=== PATIENT | female | born 1995 | race Caucasian/White ===

== ENCOUNTER 2018-08-04 07:02 | Emergency (ER) | payer OTHER ==
[2018-08-04] MEDS ORDERED: Acetaminophen TAB* 325 MG PO ONE (07:15)
[2018-08-04] MEDS ORDERED: Ibuprofen TAB* 800 MG PO ONE (07:15)
--- NOTE | 2018-08-04 07:21 | ED ---
HPI Febrile Illness - HPI Summary HPI Summary: 22 year old female presents with fever for the past 3 days. She states that she has been taking tyenlol for her fever but her temperature keeps coming back up. She denies any cough. She admits to sinus congestion. She admits to occasionally headache but no headache now. she was vomiting but that has resolved. She has not taken anything for her fever today. no abdominal pain or diarrhea. no neck stiffness. she admits to occasionally sore throat. no medical conditions. - History of Current Complaint Chief Complaint: EDFluSymptoms Time Seen by Provider: 08/04/18 07:04 Pain Intensity: 0 - Allergy/Home Medications Allergies/Adverse Reactions: Allergies Allergy/AdvReac Type Severity Reaction Status Date / Time No Known Allergies Allergy Verified 08/04/18 07:09 PMH/Surg Hx/FS Hx/Imm Hx Endocrine/Hematology History: Denies: Hx Anticoagulant Therapy Respiratory History: Denies: Hx Asthma Infectious Disease History: No Infectious Disease History: Denies: Traveled Outside the [place] in Last 30 Days - Family History Known Family History: Negative: Respiratory Disease - Social History Substance Use Type: Reports: None Smoking Status (MU): Never Smoked Tobacco Review of Systems Positive: Fever Positive: Sore Throat, Nasal Discharge Negative: Chest Pain Negative: Shortness Of Breath, Cough Positive: Vomiting. Negative: Abdominal Pain, Diarrhea, Nausea All Other Systems Reviewed And Are Negative: Yes Physical Exam Triage Information Reviewed: Yes Vital Signs On Initial Exam: Initial Vitals Temp Pulse Resp BP Pulse Ox 102.3 F 116 18 135/76 96 08/04/18 07:04 08/04/18 07:04 08/04/18 07:04 08/04/18 07:04 08/04/18 07:04 Vital Signs Reviewed: Yes Appearance: Positive: Well-Appearing Skin: Positive: Warm, Dry Head/Face: Positive: Normal Head/Face Inspection Eyes: Positive: Normal, EOMI, JAIMIE, Conjunctiva Clear ENT: Positive: Normal ENT inspection, Pharynx normal, TMs normal Neck: Positive: Supple, Nontender, No Lymphadenopathy. Negative: Nuchal Rigidity Respiratory/Lung Sounds: Positive: Clear to Auscultation, Breath Sounds Present Cardiovascular: Positive: Normal, RRR Abdomen Description: Positive: Nontender, Soft Bowel Sounds: Positive: Present Musculoskeletal: Positive: Normal Neurological: Positive: Normal Psychiatric: Positive: Normal Diagnostics - Vital Signs Vital Signs Temp Pulse Resp BP Pulse Ox 08/04/18 07:04 102.3 F 116 18 135/76 96 - Laboratory Lab Statement: Any lab studies that have been ordered have been reviewed, and results considered in the medical decision making process. - Radiology chest Radiology Interpretation Completed By: Radiologist Summary of Radiographic Findings: IMPRESSION: SMALL RIGHT BASILAR INFILTRATE. Re-Evaluation - Re-Evaluation First Eval Re-Evaluation Time: 08:09 Change: Improved Comment: able to tolerated gingerale Second Eval Re-Evaluation Time: 09:09 Change: Improved Comment: feels sweaty but is feeling better. continues to drink water and gingerale Third Eval Re-Evaluation Time: 09:25 Change: Improved Comment: fever is now 100, wants to be discharge Course/Dx - Course Course Of Treatment: 22 year old female presents with fever for the past 3 days. She has been taking tyenlol but did not take any today. was vomiting but that has since resolved. no cough. admits to sinus congestion and a sore throat. on exam does not appear ill. neg nuchal rigidity. lungs CTA. pharynx normal. patient declined lab work and IV fluids as states will vasovagal and wants to see if temp comes down with oral fluids. chest xray shows basilar infiltrate. will treat with azithromycin. patient fever came down with ibuprofen and tyelol and oral fluids. patient feels better. warned if anything changes to return for lab work. patient understand and agrees with plan. - Febrile Illness Differential Diagnoses: Pneumonia, Viremia, Other: - upper resp infection - Diagnoses Provider Diagnoses: Pneumonia Discharge - Sign-Out/Discharge Documenting (check all that apply): Patient Departure - Discharge Plan Condition: Good Disposition: HOME Prescriptions: Acetaminophen TAB* [Tylenol TAB*] 650 mg PO Q6H PRN #20 tab PRN Reason: Fever Azithromycin TAB* [Zithromax TAB ([id number]) 250 mg #6 tabs] 250 mg PO DAILY #4 tab Ibuprofen TAB* [Motrin TAB* 800 MG] 800 mg PO Q6H #20 tab Patient Education Materials: Pneumonia (ED) Forms: *School Release Referrals: No Primary Care Phys,NOPCP [Primary Care Provider] - Additional Instructions: Take antibiotic once daily starting tomorrow for 4 days drink plenty of fluids Take Tylenol or ibuprofen for fever every 6 hours Return to ED if develop any new or worsening symptoms - Billing Disposition and Condition Condition: GOOD Disposition: Home
[2018-08-04] MEDS ORDERED: Azithromycin TAB* 250 MG PO ONE (07:47)
[2018-08-04 09:42] VITALS: BP 122/77
== END 2018-08-04 09:41 | disposition home or self-care (01) ==
LOC: ED 07:02
DX: J18.9 Pneumonia, unspecified organism (principal)
CPT/HCPCS: 71046; 99283; A9270-GY